=== PATIENT | male | born 1970 | race Caucasian/White ===

== ENCOUNTER 2022-03-20 11:47 | Emergency (ER) | payer OTHER, SELFPAY ==
[2022-03-20 11:52] VITALS: BP 148/96; PULSE 66; RESP 16; TEMP 36.4; O2SAT 99
--- NOTE | 2022-03-20 12:01 | ED.URI ---
HPI - URI/Sore Throat General Chief Complaint: Upper Respiratory Infection Stated Complaint: cold flu Time Seen by Provider: 03/20/22 12:01 Source: patient and RN notes reviewed History of Present Illness HPI Narrative: Patient is a 52-year-old male who presents to urgent care with complaints of cough and congestion for 1 week. Patient states he does have a history of allergies and does take daily Zyrtec. Patient denies any shortness of breath. Denies any other upper respiratory complaints. No other acute complaints. No acute distress noted. Patient aware of the plan care. Some parts of this dictation were generated by voice recognition software and may contain typographical and/or grammatical inaccuracies. Related Data Home Medications Medication Instructions Recorded Confirmed lisinopril 5 mg tablet 5 mg PO DAILY 03/20/22 03/20/22 meloxicam 15 mg tablet 15 mg PO DAILY 03/20/22 03/20/22 Allergies Allergy/AdvReac Type Severity Reaction Status Date / Time No Known Allergies Allergy Verified 03/20/22 12:04 Review of Systems Review of Systems: CONSTITUTIONAL: Denies fever, chills, or sweats. EYES: Denies visual changes, redness, or discharge. ENT: Denies rhinorrhea, congestion, sore throat, or otalgia. CARDIOVASCULAR: Denies chest pain, palpitations, or edema. RESPIRATORY: Reports cough and chest congestion GASTROINTESTINAL: Denies abdominal pain, nausea, vomiting, or diarrhea. GENITOURINARY: Denies dysuria or hematuria. SKIN: Denies rash or itching. MUSCULOSKELETAL: Denies back pain, joint pain, or myalgia. NEUROLOGIC: Denies headache, numbness, or weakness. All other systems reviewed are negative, except as documented in HPI. PMFSH Comments At the time of my signature, I reviewed and agree with the nursing past medical, surgical, social, and family history. There is no relevant family history pertinent to the patient complaint. Exam Narrative: GENERAL: This is a well-nourished, well-developed patient, in no apparent distress. HEAD: normocephalic, atraumatic. EYES: PERRL. Sclera clear/white. Vision is grossly intact. EARS: External ears normal, auditory canals clear and without drainage, TMs normal without perforation. Hearing grossly intact. NOSE: External nose normal with no obvious nasal discharge, nares without redness, clear rhinorrhea. THROAT: Mucous membranes moist, posterior pharynx clear. moderate postnasal drainage NECK: Neck supple, non-tender without lymphadenopathy CARDIOVASCULAR: Regular rate and rhythm without murmurs, gallops, or rubs. RESPIRATORY: Clear to auscultation. Breath sounds equal bilaterally. No wheezes, rales, or rhonchi. SKIN: warm, intact with no suspicious lesions or rash, good texture and turgor. NEURO: awake, alert, and oriented to person, place and time. There were no obvious focal neurologic abnormalities. EXTREMITIES: No clubbing, cyanosis, or edema. Course Course Level of Care: Express Care Visit Vital Signs Vital signs: Vital Signs Temperature 97.6 F 03/20/22 11:52 Pulse Rate 66 03/20/22 11:52 Respiratory Rate 16 03/20/22 11:52 Blood Pressure 148/96 H 03/20/22 11:52 Pulse Oximetry 99 03/20/22 11:52 Oxygen Delivery Room Air 03/20/22 11:52 Temperature 97.6 F 03/20/22 11:52 Pulse Rate 66 03/20/22 11:52 Respiratory Rate 16 03/20/22 11:52 Blood Pressure 148/96 H 03/20/22 11:52 Pulse Oximetry 99 03/20/22 11:52 Oxygen Delivery Room Air 03/20/22 11:52 reviewed- Patient is informed that they may have pre-hypertension or hypertension based on a blood pressure reading in the department. I recommend the patient call the primary care provider listed on their discharge instructions or a physician of their choice this week to arrange follow-up for further evaluation of possible pre-hypertension or hypertension. MDM - URI/Sore Throat MDM Narrative Medical decision making narrative: advised patient to continue his daily Zy
== END 2022-03-20 12:15 | disposition home or self-care (01) ==
PROVIDERS: Emergency Provider Nurse Practitioner Family
DX: R05.9 Cough, unspecified (principal); I10 Essential (primary) hypertension
CPT/HCPCS: 99203; G0463

== ENCOUNTER → 2024-04-06 13:27 | Outpatient (REF) | payer OTHER, SELFPAY | LOC: ANHLAB 13:27 | PROVIDERS: Visit Provider Plastic Surgery | DX: L72.11 Pilar cyst (principal) | CPT/HCPCS: 88305 ==

== ENCOUNTER → 2024-06-20 09:10 | Outpatient (REF) | payer OTHER, SELFPAY ==
--- OUTSIDE RECORDS SUMMARY | 2024-06-20 09:48 | XMS_ITS | Clinical Summary ---
Author Organization [facility] Address [address] [place] [address] Phone Care Team Providers Care Bag Shop Worker Name Role Phone Unavailable Primary Care Provider Unavailabl e Allergies No known active allergies Medications lansoprazole (PREVACID) 15 mg Capsule, Delayed Release(E.C.) Take 15 mg by mouth. 05/18/2018 Active meloxicam (MOBIC) 15 mg tablet TAKE 1 TABLET BY MOUTH EVERY DAY 30 Tablet 1 06/24/2021 Active Active Problems No known active problems Social History Tobacco Use Types Packs/Day Years Used Date Smoking Tobacco: Never Assessed Sex and Gender Information Value Date Recorded Sex Assigned at Not on file Legal Sex Male 3:08 PM CDT Gender Identity Not on file Sexual Orientation Not on file Plan of Treatment Health Maintenance Due Date Last Done Comments DTAP/TDAP/TD VACCINES (1 - Tdap) 1991 HEPATITIS B VACCINES (1 of 3 - 19+ 3-dose series) 11/1990 COLORECTAL SCREENING 2017 Colorectal Cancer Screening 2017 FIT-DNA Q 3 years 2017 FIT/FOBT Q 1 year 2017 Flex Sig/CT Colonography Q 5 years 2017 ZOSTER VACCINE (1 of 2) 2022 INFLUENZA VACCINE (#1) 2023 [place] [address] [place] [id number] [facility] OPTIONS PPO [id number]
--- OUTSIDE RECORDS SUMMARY | 2024-06-20 09:48 | XMS_ITS | Clinical Summary ---
Author Organization [facility] Address [address] [facility] [place] [address] Phone Care Team Providers Care Matzo Forming Machine Operator Name Role Phone KeilaPeter crooks Judi DPM Unavailable [phone] Valdez Azevedo MD Primary Care Provider [phone] Allergies No known active allergies Medications pantoprazole (PROTONIX) 40 MG Tablet Delayed Response 6 Active Omeprazole Magnesium (PRILOSEC OTC PO) Take by mouth. Activ e lansoprazole (PREVACID) 15 MG CAPSULE DELAYED RELEASE Take 15 mg by mouth. 9 Active methylPREDNISol one (MEDROL) 4 MG Tablet Therapy PackIndications :Acute bronchitis, unspecified organism Use as per instructions on package. 21 Tab 0 Active Additional Information Patient not taking.Reported on 04/23/2024 promethazine-de xtromethorphan (PROMETHAZINE-D M) 6.25-15 MG/5ML SyrupIndication s:Acute bronchitis, unspecified organism Take 5 mL by mouth every 4 hours as needed for Cough. 240 mL 0 Active Additional Information Patient not taking.Reported on 04/23/2024 meloxicam (MOBIC) 15 MG Tablet Take 15 mg by mouth. 1 Active lisinopril (PRINIVIL, ZESTRIL) 5 MG Tablet TAKE 1 TABLET (5 MG TOTAL) BY MOUTH DAILY. 2 Active predniSONE (DELTASONE) 20 MG Tablet Take 20 mg by mouth daily. 2 Active benzonatate (TESSALON) 100 MG Capsule TAKE 1 CAPSULE BY MOUTH THREE TIMES A DAY NEEDED FOR COUGH 2 Active Active Problems Problem Noted Date Diagnosed Date Pain of left great toe 08/19/2015 Onycholysis of toenail 08/19/2015 Dermatophytosis of nail 08/19/2015 Encounters Date Type Department Care Team Description 04/23/2024 3:30 PM CONTROLS TECHNICIAN Urgent Care Visit [facility] - [address] [place] [address] Andrea Crump, CREDIT ASSOCIATE, LOAN CONSULTANT Acute non-recurrent sinusitis, unspecified location (Primary Dx) Discharge Disposition: Discharged to home or Selfcare 04/23/2024 Travel from Last 3 Months Immunizations Immunization Administration Dates Next Due TDAP Vaccine 03/11/2021 Zoster Vaccine Recombinant 05/25/2023 Social History Tobacco Use Types Packs/Day Years Used Date Smoking Tobacco: Never Smokeless Tobacco: Former Chew Tobacco Cessation:Counseling Given: Not Answered Alcohol Use Standard Drinks/Week Comments Not Currently 0 (1 standard drink = 0.6 oz pur e alcohol) Social Sex and Gender Information Value Date Recorded Sex Assigned at Not on file Legal Sex Male 12:00 AM CDT Gender Identity Not on file Sexual Orientation Not on file Last Filed Vital Signs Vital Sign Reading Time Taken Comments Blood Pressure 132/76 04/23/2024 3:25 PM CONTROLS TECHNICIAN Pulse 78 04/23/2024 3:25 PM CONTROLS TECHNICIAN Temperature 36.6 C (97.8 F) 04/23/2024 3:25 PM CONTROLS TECHNICIAN Respiratory Rate 16 04/23/2024 3:25 PM CONTROLS TECHNICIAN Oxygen Saturation 97% 04/23/2024 3:25 PM CONTROLS TECHNICIAN Inhaled Oxygen Concentration - - Weight 117.9 kg (260 lb) 12/09/2020 9:09 AM CDT Height 185.4 cm (6' 1 ) 08/19/2015 1:20 PM CDT Body Mass Index 34.3 08/19/2015 1:20 PM CDT Plan of Treatment Health Maintenance Due Date Last Done Comments Hepatitis C Virus (HCV) Screening 1972 Hepatitis B Immunization (1 of 3 - 19+ 3-dose series) 1991 Cologuard 2022 Immunochemical Fecal Occult Blood 2022 Pneumococcal Immunization (5 0+ years) (1 of 1 - PCV) 2022 Zoster Immunization (2 of 2) 07/20/2023 05/25/2023 Influenza Immunization (#1) 2023 SARS-COV-2 Immunization (3 - season) 2023 10/24/2020, 07/05/2020 Td Immunization Every 10 Yea rs (Adults With 1 Tdap) 03/11/2031 03/11/2021 Colonoscopy 05/06/2033 05/06/2023 Colorectal Cancer Screening 05/06/2033 Respiratory Syncytial Virus (RSV) Immunization (Adult) (1 - 1-dose 75+ series) 2047 05/06/2023 DTaP/Tdap/Td Immunization Discontinued 03/11/2021 TdaP Immunization Discontinued 03/11/2021 Meningococcal Immunization (ACWY) Aged Out No longer eligible based on patient's age to complete this topic Rotavirus Immunization Aged Out No lo nger eligible based on patient's age to complete this topic Insurance [facility] Care Teams Matzo Forming Machine Operator Relationship Specialty Start Date End Date Vadlez Azevedo MD [address] [place] [address] PCP - General Family Medicine 08/19/15 Peter Pedraza DPM Podiatry 08/19/15
--- OUTSIDE RECORDS SUMMARY | 2024-06-20 09:49 | XMS_ITS | Referral Summary ---
Author Organization [facility] Address [address] [place] [address] Care Team Providers Care Principal System Software Engineer Name Role Phone Sendy Pyle NP Primary Care Provider [phone] Allergies No known active allergies Medications omega-3 fatty acids (FISH OIL CONCENTRATE ORAL) Take by mouth Active lysine HCL 1,000 mg tablet Take by mouth Active cyanocobalamin (Vitamin B-12) 2,500 mcg tablet, sublingualIndic ations:Preventi on of Vitamin B12 Deficiency daily Activ e meloxicam (MOBIC) 15 mg tablet Take 1 tablet (15 mg total) by mouth daily 30 tablet 5 4 Active lansoprazole (PREVACID) 30 mg capsule TAKE 1 CAPSULE BY MOUTH EVERY DAY 30 capsule 5 5 Active lisinopriL (PRINIVIL,ZESTR IL) 5 mg tablet TAKE 1 TABLET (5 MG TOTAL) BY MOUTH DAILY. 30 tablet 3 5 Active lansoprazole (PREVACID) 30 mg capsule Take 1 capsule (30 mg total) by mouth daily 90 capsule 1 4 025 Discontinued lisinopriL (PRINIVIL,ZESTR IL) 5 mg tablet TAKE 1 TABLET (5 MG TOTAL) BY MOUTH DAILY. 100 tablet 4 025 Discontinued Active Problems Problem Noted Date Diagnosed Date Encounter for screening colonoscopy 02/18/2023 Hypertension, essential 05/19/2022 Assessment & Plan (11/23/2023 4:33 PM CDT): BP well controlled in office, continues Lisinopril 5 mg daily Renal function in good shape. Assessment & Plan (11/17/2022 4:37 PM CDT): BP slightly increased on diastolic reading, pt notes increased salt intake in the past 24 hours. Will continue the Lisinopril 5 mg and get updated labs. Home BP's and send in 1 week. Assessment & Plan (05/19/2022 3:15 PM HAND DRAWER IN): Home BP's ranging 140-150's/80's. Occasionally will have lower readings. BP 122/80 in office, hesitant to make adjustment at this point. Wondering if home BP cuff is correct size as we are having to use the larger cuff in office. Try changing out the batteries in the machine also. Home BP's in 1 week and decrease sodium in diet/exercise encouraged. Dermatophytosis of nail 08/19/2015 Onycholysis of toenail 08/19/2015 Pain of left great toe 08/19/2015 Cyst 04/22/2015 Overview (07/09/2016): Subcutaneous cyst Gastroesophageal reflux disease 11/30/2013 Overview (07/10/2016): Gastroesophageal reflux disease Assessment & Plan (11/23/2023 4:33 PM CDT): Not at goal, still experiencing breakthrough symptoms and having to use prn TUMS more frequently for canker sores. Will increase Prevacid to 30 mg daily, may need GI eventually. Assessment & Plan (03/10/2022 9:30 AM HAND DRAWER IN): Continuing Prevacid, sx stable. Checking renal function. Assessment & Plan (09/05/2021 11:24 AM CDT): Continuing Prevacid, sx stable. Checking renal function. Assessment & Plan (03/18/2021 4:18 PM HAND DRAWER IN): Continuing Prevacid, sx stable. Vertigo 03/14/2013 Overview (07/09/2016): Vertigo Immunizations Immunization Administration Dates Next Due Influenza, Unspecified 11/17/2022(Deferr ed: Patient Refused),03/10/2022(Deferred: Patient Refused),03/18/2021(Deferred: Patient Refused),03/10/2021(Deferred: Patient Refused) Tdap 03/11/2021 ZOSTER Recombinant 05/25/2023 Social History Tobacco Use Types Packs/Day Years Used Date Smoking Tobacco: Never Passive Smoke Exposure: Never Smokeless Tobacco: Never Tobacco Cessation:Counseling Given: Not Answered Comments:Smoking History Packs/day: 1 Units Alcohol Use Standard Drinks/Week Comments No 0 (1 standard drink = 0.6 oz pur e alcohol) PHQ-2 Answer Date Recorded PHQ-2 Total Score (If total score is 3 or more points, staff should administer the PHQ-9) 0 11/23/2023 Personal Safety Answer Date Recorded Have you ever been in or are you currently in a harmful physical or emotional relationship or is someone making you feel afraid or unsafe? Denies 05/06/2023 Sex and Gender Information Value Date Recorded Sex Assigned at Not on file Legal Sex Male 5:43 PM HAND DRAWER IN Gender Identity Not on file Sexual Orientation Not on file Last Filed Vital Signs Vital Sign Reading Time Taken Comments Blood Pressure 118/68 11/23/2023 4:04 PM CDT Pulse 56 11/23/2023 4:04 PM CDT Temperature 36.3 C (97.3 F) 11/23/2023 4:04 PM CDT Respiratory Rate 16 05/25/2023 3:42 PM HAND DRAWER IN Oxygen Saturation 97% 11/23/2023 4:04 PM CDT Inhaled Oxygen Concentration - - Weight 115.7 kg (255 lb) 11/23/2023 4:04 PM CDT Height 185.4 cm (6' 1 ) 11/23/2023 4:04 PM CDT Body Mass Index 33.64 11/23/2023 4:04 PM CDT Plan of Treatment Not on file Procedures Procedure Name Priority Date/Time Associated Diagnosis Comments COLONOSCOPY 05/06/2023 8:25 AM HAND DRAWER IN PSA SCREEN Routine 11/19/2022 7:24 AM CDT Screening PSA (prostate specific antigen) from Last 3 Months or Most Recently Relevant to Health Maintenance Results * COLONOSCOPY (05/06/2023 8:25 AM HAND DRAWER IN) Anatomical Region Laterality Modality Other Narrative Procedure Note Wilmer Lima MD - 05/06/2023 8:25 AM CST [facility] Patient Name: Jose Seo Procedure Date: 05/06/2023 8:25 AM Date of : 1970 Admit Type: Outpatient Age: 53 Gender: Male Attending MD: Wilmer Lima M.D. Room: [facility] ENDOSCOPY ROOM 1 Note Status: Finalized Patient Profile: Refer to note in patient chart for documentation of history and physical. Procedure: Colonoscopy Indications: Screening for colorectal malignant neoplasm Referring MD: Roxana Parsons.N.P. Providers: Wilmer Lima M.D. Impression: - Hemorrhoids found on perianal exam. - The entire examined colon is normal. - No specimens collected. Recommendation: - Discharge patient to home. - Resume previous diet. - Continue present medications. - Repeat colonoscopy in 10 years for screening purposes. - Return to primary care physician as previously scheduled. Medicines: Propofol per Anesthesia Complications: No immediate complications. Estimated Blood Loss: Estimated blood loss: none. Procedure: Pre-Anesthesia Assessment: - This assessment was completed [Time ofAssessment] prior to the administration of sedation. The benefits, risks and alternatives of theprocedure and sedation were discussed and informed consentwas obtained. All questions were answered. Please referto the signed informed consent document in the medical record. The bowel preparation used was Miralax via single dose instruction. The bowel preparation used was bisacodyl tablets via single dose instruction.The scope was passed under direct vision. TheColonoscope [id number] was introduced through the anus and advanced to the the cecum, identified by appendiceal orifice and ileocecal valve. The colonoscopy was performed without difficulty. The patient tolerated the procedure well. The qualityof the bowel preparation was excellent. The ileocecal valve, appendiceal orifice, and rectum were photographed. Findings: Hemorrhoids were found on perianal exam. The colon (entire examined portion) appeared normal. Electronically signed by Wilmer Lima M.D. Wilmer Lima M.D. 05/06/2023 10:14:13 AM Number of Addenda: 0 Note Initiated On: 05/06/2023 8:25 AM Procedure Code(s): --- Professional --- G0121, Colorectal cancer screening; colonoscopy on individual not meeting criteria for high risk --- Technical --- G0121, Colorectal cancer screening; colonoscopy on individual not meeting criteria for high risk Diagnosis Code(s): --- Professional --- K64.9, Unspecified hemorrhoids Z12.11, Encounter for screening for malignant neoplasm of colon --- Technical --- K64.9, Unspecified hemorrhoids Z12.11, Encounter for screening for malignant neoplasm of colon CPT copyright 2020 [employer]. All rights reserved. The codes documented in this report are preliminary and upon crester reviewmay be revised to meet current compliance requirements. Recognized by the [employer] for promoting quality in endoscopy us Wilmer Lima MD ENDOSCOPY PROCEDURES Final Re sult * PSA screen (11/19/2022 7:24 AM CDT) PSA-Total 2.95 <=3.90 ng/mL JUSTYN MOHR (FREDO) Comment: Interpretive Data AGE SEX REFERENCE INTERVAL 0 minutes-150 years Female None 0 minutes-49 years Male None 50-59 years Male 0-3.90 60-69 years Male 0-5.40 70-79 years Male 0-6.20 80-150 years Male 0-6.20 The Javier PSA Total assay procedure was used. Results from different manufacturers or methods may not be comparable. Serial testing should be performed using the same method. Current interpretive data last revised 21. Blood 11/19/2022 7:24 AM CDT 11/19/2022 8:21 AM CDT Sendy Pyle NP LAB BLOOD ORDERABLES Final Resul t JUSTYN ONUR ([place]EDO) [address] [facility] Department [place] [address] from Last 3 Months or Most Recently Relevant to Health Maintenance Insurance R [facility] Member Subscriber Plan / Payer (Ef fective 2017-Present) Name:Jose Seo Relation to Subscriber:Self Name:Jose Seo Payer ID:[id number] (NAIC) Type:[facility] HMO/PPO Address: [place] [phone] Advance Directives For more information, please contact: [phone] * Full Code (Latest Code Status on File) Date Activated Date Inactivated Comments 05/06/2023 8:28 AM 05/06/2023 2:53 PM * Full Code Date Activated Date Inactivated Comments 05/06/2023 8:28 AM 05/06/2023 8:28 AM Care Teams Principal System Software Engineer Relationship Specialty Start Date End Date Sendy Pyle NP PCP - General Family Medicine 03/03/21
--- OUTSIDE RECORDS SUMMARY | 2024-06-20 09:49 | XMS_ITS | Clinical Summary ---
Author Organization [facility] Address [address] [place] [address] Care Team Providers Care Hog Buyer Name Role Phone Sendy Pyle NP Primary Care Provider [phone] Allergies No known active allergies Medications omega-3 [...] week. 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 Occasionally will have [...] eventually. Assessment & Plan (03/10/2022 9:30 AM MARBLE MECHANIC HELPER): Continuing Prevacid, sx stable. Checking renal function. Assessment & Plan (09/05/2021 11:24 AM CDT): Continuing Prevacid, sx stable. Checking renal function. Assessment & Plan (03/18/2021 4:18 PM MARBLE MECHANIC HELPER): Continuing Prevacid, sx stable. Vertigo 03/14/2013 Overview (07/09/2016): Vertigo Immunizations Immunization Administration Dates Next Due Influenza, Unspecified 11/17/2022(Deferr ed: Patient Refused),03/10/2022(Deferred: Patient Refused),03/18/2021(Deferred: Patient Refused),03/10/2021(Deferred: Patient Refused) Tdap 03/11/2021 ZOSTER Recombinant 05/25/2023 Surgical History Surgery Date Site/Laterality Comments OTHER SURGICAL HISTORY acl left knee (01-18-13) OTHER SURGICAL HISTORY stacy garrido (1996) OTHER SURGICAL HISTORY Left MCL tear: MCL repair COLONOSCOPY 05/06/2023 Medical History Medical History Date Comments Tension headache Headache, tensi on Gastroesophageal reflux disease GERD Tear of medial collateral ligament of knee MCL tear; Comments: OAC 11/30/2013 - also tore ACL in same knee; Laterality: left Hypertension Family History Medical History Relation Name Comments Hypertension Father Hypertension; Coronary artery disease Maternal Grandfather Coronary artery disease; Diabetes type II Maternal Grandmother Vanessa betes mellitus type 2; Heart attack Paternal Grandfather Myocard ial infarction; Cause of : Myocardial infarction Breast cancer Paternal Grandmother Cancer , breast; Cause of : Cancer, breast Relation Name Status Comments Father Maternal Grandfather Maternal Grandmother Paternal Grandfather Paternal Grandmother Social History Tobacco Use Types Packs/Day Years [...] on file Legal Sex Male 5:43 PM MARBLE MECHANIC HELPER Gender Identity Not on file Sexual Orientation Not on file Obstetrics History Last Filed Vital Signs Vital Sign Reading Time Taken Comments Blood Pressure 118/68 11/23/2023 4:04 PM CDT Pulse 56 11/23/2023 4:04 PM CDT Temperature 36.3 C (97.3 F) 11/23/2023 4:04 PM CDT Respiratory Rate 16 05/25/2023 3:42 PM MARBLE MECHANIC HELPER Oxygen Saturation 97% 11/23/2023 4:04 PM CDT Inhaled Oxygen Concentration - - Weight 115.7 kg (255 lb) 11/23/2023 4:04 PM CDT Height 185.4 cm (6' 1 ) 11/23/2023 4:04 PM CDT Body Mass Index 33.64 11/23/2023 4:04 PM CDT Plan of Treatment Health Maintenance Due Date Last Done Comments Hepatitis C Screening 1970 Hepatitis B Screening 1990 Zoster Vaccine (2 of 2) 07/20/2023 05/25/2023 Covid-19 Vaccine (3 - season) 2023 10/24/2020, 07/05/2020 Influenza Vaccine (#1) 2023 Prostate Cancer Screening-PSA 11/19/2024 11/19/2022 Depression Screening 11/22/2024 11/23/2023, 05/25/2023, 11/17/2022, Additional history exists Regular Well Visit/Exam 18-64 11/22/2024 11/23/2023, 03/10/2022, 03/18/2021, Additional history exists DTaP/Tdap/Td Vaccine (2 - Td or Tdap) 03/11/2031 03/11/2021 Colon Cancer Screening-Colonoscopy 05/06/2033 05/06/2023 Pneumococcal vaccine <65 Aged Out No longer eligible based on patient's age to complete this topic Procedures Procedure Name Priority Date/Time Associated Diagnosis Comments COLONOSCOPY 05/06/2023 8:25 AM [employer]BLE MECHANIC HELPER PSA SCREEN Routine 11/19/2022 7:24 AM CDT Screening PSA (prostate specific antigen) from Last 3 Months or Most Recently Relevant to Health Maintenance Results * COLONOSCOPY (05/06/2023 8:25 AM MARBLE MECHANIC HELPER) Anatomical Region Laterality Modality Other Narrative Procedure Note Wilmer Lima MD - 05/06/2023 8:[address] [facility] Patient Name: Jose Seo Procedure Date: 05/06/2023 8:25 AM Date of : 1970 Admit Type: Outpatient Age: 53 Gender: Male Attending MD: Wilmer Lima M.D. Room: [facility] ENDOSCOPY ROOM 1 Note Status: Finalized Patient Profile: Refer to note in patient chart for documentation of history and physical. Procedure: Colonoscopy Indications: Screening for colorectal malignant neoplasm Referring MD: Mariza Parsons Providers: Wilmer Lima M.D. Impression: - Hemorrhoids [...] scope was passed under direct vision. TheColonoscope [id number] was introduced through the anus and advanced [...] malignant neoplasm of colon CPT copyright 2020 [employer]. All rights reserved. The codes documented in this report are preliminary and upon unemployment claims adjudicator reviewmay be revised to meet current compliance requirements. Recognized by the [employer] for promoting quality in endoscopy us Wilmer Lima MD ENDOSCOPY PROCEDURES Final Re sult * PSA screen (11/19/2022 7:24 AM CDT) PSA-Total 2.95 <=3.90 ng/mL [facility] ON[facility] ([place]) Comment: Interpretive Data AGE SEX REFERENCE [...] 7:24 AM CDT 11/19/2022 8:21 AM CDT us Sendy Pyle DIRECTOR OF SAFETY AND SECURITY LAB BLOOD ORDERABLES Final Resul t JUSTYN MOHR (FRED[place]) [address] [facility] [place] [address] from Last 3 Months or Most Recently Relevant to Health Maintenance Insurance [facility] Advance Directives For more information, please contact: [phone] * Full Code (Latest Code Status on File) Date Activated Date Inactivated Comments 05/06/2023 8:28 AM 05/06/2023 2:53 PM * Full Code Date Activated Date Inactivated Comments 05/06/2023 8:28 AM 05/06/2023 8:28 AM Care Teams Hog Buyer Relationship Specialty Start Date End Date Sendy Pyle NP PCP - General Family Medicine 03/03/21
== END ==
LOC: ANHLAB 09:10
PROVIDERS: Visit Provider Physician Assistant Surgical
DX: L72.11 Pilar cyst (principal)
CPT/HCPCS: 88304